=== PATIENT | male | born 1990 | race Caucasian/White ===

== ENCOUNTER 2017-03-28 12:17 | Emergency (ER) | payer OTHER ==
[~2017-03-28 12:17] MED LIST: BENTYL10 MG PO; BUPROPION XL300 M1 PO; FLEXERIL PO; FLEXERIL10 MG PO; MOTRIN400 M1 PO; NAPROXEN500 M1 PO; NO MEDICATIONS; PEPCID PO; PHENERGAN25 MG PO; PRILOSEC; REGLAN10 MG PO; SUDAFED30 M1 PO; ZEGERID40 MG/PKT PO; ZOFRAN ODT4 MG PO; ZOFRAN ODT4 MG/UDTAB PO
[2017-03-28] MEDS ORDERED: NO MEDICATIONS (12:18)
== END 2017-03-28 12:42 | disposition home or self-care (01) ==
LOC: SED 12:17
DX: J06.9 Acute upper respiratory infection, unspecified (principal); K21.9 Gastro-esophageal reflux disease without esophagitis; F17.200 Nicotine dependence, unspecified, uncomplicated; Z86.69 Personal history of other diseases of the nervous system and sense organs; Z88.8 Allergy status to other drugs, medicaments and biological substances
CPT/HCPCS: 99282